=== PATIENT | female | born 1960 | race Caucasian/White ===

== ENCOUNTER 2023-05-20 08:30 | Day surgery (SDC) | payer OTHER, SELFPAY ==
--- NOTE | 2023-05-19 12:18 | HO.ANESPROP2 ---
Documented by User: Aliza Milan NP 05/19/23 12:18 HPI - Anesthesia Eval Consult details Narrative: 62yo F for Colonoscopy PMFSH Past Medical History Medical History Duplicated left renal collecting system Kidney stones PUD (peptic ulcer disease) IBS (irritable bowel syndrome) Arthritis GERD (gastroesophageal reflux disease) Surgical History Surgical History Hx of cystoscopy History of tonsillectomy and adenoidectomy History of bladder surgery History of hysterectomy History of lithotripsy Hx of colonoscopy Hx of esophagogastroduodenoscopy Social History Social History Patient Tobacco Use Status: Never used Tobacco Use of substances other than those prescribed or required for medical reasons: No Are you DNR?: No Advance Directives: No Advance Directives Information Provided: Yes Nutrition Risks: No Nutritional Risk Meds Allergies Allergy/AdvReac Type Severity Reaction Status Date / Time Sulfa Allergy Unknown Uncoded 10/05/11 00:00 Home Medications Medication Instructions Recorded Confirmed Last Taken Type Vitamin C PO 05/19/23 Unknown History Vitamin D (with calcium) PO 05/19/23 Unknown History aspirin 81 mg tablet 81 mg PO DAILY 05/19/23 05/19/23 Unknown History hydrochlorothiazide 12.5 mg capsule 12.5 mg PO DAILY 05/19/23 05/19/23 Unknown History multivitamin,eh-aynv-Mt-FA-min tab PO 05/19/23 Unknown History Exam Exam Date and Time: May 19, 2023 121 Assessment and Plan Assessment Anesthesia Assessment: Chart Reviewed Documented by User: Marcela Rachel MD 05/20/23 10:38 PMFSH Active Problems Active Problems: Kidney stones. On HCTZ Prophylactic Baby ASA. Last dose over a week ago Past Medical History Medical History Duplicated left renal collecting system Kidney stones PUD (peptic ulcer disease) IBS (irritable bowel syndrome) Arthritis GERD (gastroesophageal reflux disease) Family History Family history of problems with anesthesia: No Surgical History Surgical History Hx of cystoscopy History of tonsillectomy and adenoidectomy History of bladder surgery History of hysterectomy History of lithotripsy Hx of colonoscopy Hx of esophagogastroduodenoscopy History of Problems with Anesthesia: No Social History Social History Patient Tobacco Use Status: Never used Tobacco Use of substances other than those prescribed or required for medical reasons: No Are you DNR?: No Advance Directives: No Advance Directives Information Provided: Yes Nutrition Risks: No Nutritional Risk Meds Allergies Allergy/AdvReac Type Severity Reaction Status Date / Time Sulfa Allergy Unknown Uncoded 10/05/11 00:00 Home Medications Medication Instructions Recorded Confirmed Last Taken Type Vitamin C PO 05/19/23 Unknown History Vitamin D (with calcium) PO 05/19/23 Unknown History aspirin 81 mg tablet 81 mg PO DAILY 05/19/23 05/19/23 Unknown History hydrochlorothiazide 12.5 mg capsule 12.5 mg PO DAILY 05/19/23 05/19/23 Unknown History multivitamin,ud-ixbt-Qf-FA-min tab PO 05/19/23 Unknown History Exam Height,Weight and Vital Signs: Height 5 ft 8 in Weight 84.822 kg Vital Signs Temp Pulse Resp BP Pulse Ox O2 Del Method 05/20/23 09:56 97.9 F 70 16 113/68 98 Room Air Airway Mallampati Class: II TM Dist: >3cm Neck ROM: Full Loose/Missing/Broken Teeth: No (Veneers top. Denies broken, loose, missing teeth) Heart: RRR Lungs: CTAB Assessment and Plan Assessment Anesthesia Assessment: Anesthesia Plan Discussed Final Anesthetic Review Family History of Problems with Anesthesia: No History of Problems with Anesthesia: No NPO: Yes ASA Class: II Final Preanesthetic Review: No Changes in Pt Med Stat, Meds/Allgs Chart Reviewed, Consent Obtained/Reviewed and Anes Risks/Benef Reviewed Patient Risk: Low Procedure Risk: Low Assessment/Block/Sedation in SS: Assess/Block/Sedation-SS Anesthetic Plan Anesthetic Plan: MAC: Disposition: Standard PACU
[2023-05-20 09:49] VITALS: BMI 28.4
[2023-05-20 09:56] VITALS: BP 113/68; PULSE 70; RESP 16; TEMP 36.6; O2SAT 98
--- NOTE | 2023-05-20 10:19 | P.HPSUR_ITS ---
Pre-Procedural Eval Section A Date of Service: 05/20/23 Section B Chief Complaint: screening Details of Present Illness: see h&p, no changes Relevant Family History (Specify if Yes): Yes Relevant Social History: None Present Medications: None Medical History: No relevant PMH History of Previous Operations: No relevant previous surgery Allergies: Allergies Allergy/AdvReac Type Severity Reaction Status Date / Time Sulfa Allergy Unknown Uncoded 10/05/11 00:00 Review of Systems Sugical H&P ROS: Negative: Constitution, Cardiovascular, Respiratory, Neurological, Psychiatric, Hem-Onc, Allergic/Immunologic, Gastrointestinal, Genitourinary, Musculoskeletal, Integumentary, Endocrine and Eyes/Ears/Nose/Throat Exam Surgical H&P Exam: Normal: HEENT, Normal: Heart, Normal: Lungs, Normal: Ex tremities, Normal: Abdomen, Normal: Skin and Normal: Neurological Plan Diagnosis/Plan: Unchanged I have reviewed the history and physical and performed a pertinent physical examination on my patient. No changes have occurred unless specified. Time Spent With Patient Time: Total time managing care of this patient today ____ minutes.
[2023-05-20] MEDS: Lactated Ringers 1,000 ML 100 ML IVCONT (10:20)
[2023-05-20 11:00] VITALS: BP 95/48; PULSE 76; RESP 16; TEMP 36.1; O2SAT 97
--- NOTE | 2023-05-20 11:02 | PM.OP ---
Brief Operative Note Date of Service: 05/20/23 Pre-op diagnosis: screening Post-op diagnosis: same Procedure: colonoscopy Surgeon: Chris Tinsley Anesthesia: MAC Was an Testing Analyst used for this Procedure?: No Estimated blood loss (mL): 2 Pathology: other Condition: stable Disposition: PACU
[2023-05-20 11:15] VITALS: BP 101/57; PULSE 76; RESP 14; TEMP 36.6; O2SAT 99
--- NOTE | 2023-05-20 11:30 | OP_ITS ---
DATE OF SERVICE: 05/20/2023 SURGEON: Chris Tinsley MD INDICATIONS: Colon cancer screening. PREOPERATIVE DIAGNOSIS: POSTOPERATIVE DIAGNOSIS: PROCEDURE PERFORMED: Colonoscopy to the terminal ileum with biopsy. ESTIMATED BLOOD LOSS: COMPLICATIONS: ANESTHESIA: Monitored anesthesia care. ASSISTANTS: SPECIMENS: DESCRIPTION OF PROCEDURE: A history and physical performed. The risks and benefits of the procedure were explained to the patient. Informed consent was obtained. The patient was placed in the left lateral decubitus position. A digital rectal exam was performed and was found to be normal. The Olympus pediatric video colonoscope was introduced into the rectum and advanced to the cecum. The cecum was identified by transillumination, palpation, identification of ileocecal valve. Examination was performed. The scope was removed. She tolerated the procedure well and was taken to recovery in stable condition. FINDINGS: The terminal ileum was normal. The visualized colonic mucosa was normal. Coil of the prep was good. A single polyp measuring less than 5 mm was identified in the cecum. This was removed with biopsy forceps. No other polyps were identified. Retroflexed examination showed some small internal hemorrhoids. IMPRESSION: Colon polyp. RECOMMENDATION: Follow up the biopsy results. MD MACEY Crawley/IZZY / [id number]
== END 2023-05-20 11:40 | disposition home or self-care (01) ==
PROVIDERS: PCP Internal Medicine; Visit Provider Internal Medicine Gastroenterology
PROC: 0DJD8ZZ Inspection of Lower Intestinal Tract, Via Natural or Artificial Opening Endoscopic (ICD-10-PCS; CPT 45378; principal; 2023-05-20 09:40)
DX: Z12.11 Encounter for screening for malignant neoplasm of colon (principal); Z83.71 Family history of colonic polyps; K63.5 Polyp of colon; K64.8 Other hemorrhoids; K58.9 Irritable bowel syndrome, unspecified; K21.9 Gastro-esophageal reflux disease without esophagitis; Q63.0 Accessory kidney; Z79.899 Other long term (current) drug therapy; Z87.11 Personal history of peptic ulcer disease; Z87.442 Personal history of urinary calculi; Z98.890 Other specified postprocedural states
CPT/HCPCS: 45380; 88305